=== PATIENT | male | born 1960 | race Caucasian/White ===

== ENCOUNTER 2016-09-29 17:41 | Emergency (ER) | payer OTHER ==
[~2016-09-29] VITALS: Ht 185.4 cm; Wt 120.0 kg
[~2016-09-29 17:41] MED LIST: ALBUAER3 INH; ALLO300T2 PO; ALPR0.5T3 PO; AMLO10TA2 PO; APIX5TAB PO; ATOR1TAB18 PO; BACL10TA PO; CARV25TA PO; CLON1TAB PO; COLC1TAB7 PO; DULE200A INH; ENAL20TA PO; FENT25DI T-DERMAL; GABA100C4 PO; HYDR-3535 PO; MONT10TA4 PO; PANT40TA3 PO; VENL75TA PO
[2016-09-29 17:45] VITALS: BP 137/87; PULSE 79; RESP 16; TEMP 98; O2SAT 96
[2016-09-29] MEDS ORDERED: ACETAMINOPHEN 325 MG TAB PO ONE (18:00)
--- NOTE | 2016-09-29 18:22 | PD ---
HPI Chief Complaint: Fall Time Seen by Provider: 17:51 Travel History International Travel<30 days: No Contact w/Intl Traveler<30days: No Traveled to known affect area: No History of Present Illness HPI 56-year-old male [place] the [place]. He was seated in a chair on the beach and his bumped into him causing him to fall backwards landing on his occipital scalp. 4 about 30 minutes or so the patient had disorientation or memory loss. His states that the whole time he has been behaving normally. He complains of minimal occipital cephalgia and frontal cephalgia in the ER. He has no numbness tingling weakness. states he normally suffers with memory impairment typically inability to recall the dates of the month/year. He has a history of CVA and DVT with PE. He takes Eloquis. The reports a history of transient global amnesia. He denies drugs alcohol. The patient's states he was awake and alert throughout the entirety of the event and his behavior was normal as well. PFSH Past Medical History Hx Anticoagulant Therapy: Yes (ELIQUIS) Arthritis: Yes (SHOULDER AND BACK) Asthma: Yes Blood Disorders: No Anxiety: Yes Depression: No Heart Rhythm Problems: No Cancer: No Cardiovascular Problems: Yes High Cholesterol: Yes Chest Pain: Yes Congestive Heart Failure: Yes COPD: Yes Cerebrovascular Accident: Yes Diabetes: No Deep Vein Thrombosis: Yes Endocrine: No GERD: Yes Gout: Yes Genitourinary: No Hiatal Hernia: No Hypertension: Yes Immune Disorder: No Musculoskeletal: Yes Neurologic: Yes Psychiatric: Yes Reproductive: No Respiratory: Yes (COPD) Migraines: Yes Seizures: No Sleep Apnea: No Ulcer: Yes Tetanus Vaccination: < 5 Years Past Surgical History Abdominal Surgery: No AICD: No Arteriovenous Shunt: No Cardiac Surgery: Yes Coronary Stent: Yes Ear Surgery: No Endocrine Surgery: No Eye Surgery: No Genitourinary Surgery: No Gynecologic Surgery: No Insulin Pump: No Joint Replacement: No Oral Surgery: No Pacemaker: No Thoracic Surgery: No Other Surgery: Yes (RIGHT INDEX TENDON) Social History Alcohol Use: No Tobacco Use: No Substance Use: No Allergies-Medications (Allergen,Severity, Reaction): Coded Allergies: No Known Allergies (Unverified , 08/28/16) Reported Meds & Prescriptions Reported Meds & Active Scripts Active Phenergan (Promethazine HCl) 25 Mg Tab 25 Mg PO Q6H PRN Reported Lortab (Hydrocodone-Acetaminophen) 10-325 Mg Tab 1 Tab PO Q6H PRN Colcrys (Colchicine) 0.6 Mg Tab 0.6 Mg PO DAILY Fentanyl Patch 72 HR (Fentanyl) 25 Mcg/Hr Patch 25 Mcg T-DERMAL Q72H Proair Hfa 8.5 GM Inh (Albuterol Sulfate) 90 Mcg/Act Aer 2 Puff INH Q6H PRN 108 mcg/actuation Dulera 120 Act Inh (Mometasone-Formoterol 120 Act Inh) 200-5 Mcg/Act Inh 2 Puff INH BID Baclofen 10 Mg Tab 10 Mg PO TID Alprazolam 0.5 Mg Tab 0.5 Mg PO Q6H PRN Gabapentin 100 Mg Cap 200 Mg PO BID Pantoprazole (Pantoprazole Sodium) 40 Mg Tab 40 Mg PO DAILY Clonazepam 1 Mg Tab 1 Mg PO DAILY Allopurinol 300 Mg Tab 300 Mg PO DAILY Effexor (Venlafaxine HCl) 75 Mg Tab 75 Mg PO DAILY Atorvastatin (Atorvastatin Calcium) 80 Mg Tab 80 Mg PO HS Montelukast (Montelukast Sodium) 10 Mg Tab 10 Mg PO HS Amlodipine (Amlodipine Besylate) 10 Mg Tab 10 Mg PO DAILY Enalapril (Enalapril Maleate) 20 Mg Tab 20 Mg PO BID Carvedilol 25 Mg Tab 25 Mg PO BID Eliquis (Apixaban) 5 Mg Tab 5 Mg PO BID Review of Systems Except as stated in HPI: all other systems reviewed are Neg Physical Exam Narrative GENERAL: 56 yo M, WNWD, NAD SKIN: Focused skin assessment warm/dry. HEAD: Atraumatic. Normocephalic. EYES: Pupils equal and round. No scleral icterus. No injection or drainage. ENT: No nasal bleeding or discharge. Mucous membranes pink and moist. NECK: Trachea midline. No JVD. CARDIOVASCULAR: Regular rate and rhythm. No murmur appreciated. RESPIRATORY: No accessory muscle use. Clear to auscultation. Breath sounds equal bilaterally. GASTROINTESTINAL: Abdomen soft, non-tender, nondistended. Hepatic and splenic margins not palpable. MUSCULOSKELETAL: No obvious deformities. No clubbing. No cyanosis. No edema. NEUROLOGICAL: Awake and alert 2 which was normal according to the . The motor function is normal 4 extremities and symmetric. There is no cranial nerve deficit. The patient can perform serial 3's subtractions from 10 to 1. He knows who the present and is any knows that there are for quarters and dollar. His speech is normal. PSYCHIATRIC: Appropriate mood and affect; insight and judgment normal. Data Data Last Documented VS Vital Signs Date Time Temp Pulse Resp B/P Pulse Ox O2 Delivery O2 Flow Rate FiO2 09/29/16 19:25 73 12 134/78 98 Room Air 09/29/16 17:45 98.0 Vital signs reviewed Orders Ct Brain W/O Iv Contrast(Rout) (09/29/16 17:58) Acetaminophen (Tylenol) (09/29/16 18:00) Promethazine (Phenergan) (09/29/16 19:30) MDM Medical Decision Making Medical Screen Exam Complete: Yes Emergency Medical Condition: Yes Medical Record Reviewed: Yes Differential Diagnosis CHI, intracranial hemorrhage, transient global amnesia, seizure, CVA, TIA Narrative Course Last [address] 09/29/16 8158 Signed Impressions: Service Date/Time: Thursday, September 29, 2016 18:35 - CONCLUSION: No bleed or other acute intracranial abnormality. Old left basal ganglia infarct. Scott Brooks MD Close head injury precautions discussed. The patient is resting comfortably and feels better, is alert and in no distress. The patients results and examination findings were discussed. The repeat examination is unremarkable and benign. The history, exam, diagnostic testing, and current condition do not suggest any significant pathology to warrant further testing, continued ED treatment, admission, or surgical evaluation at this point. The vital signs have been stable. The patient does not have uncontrollable pain, intractable vomiting, or other significant symptoms. The patient's condition is stable and appropriate for discharge. The patient will pursue further outpatient evaluation with a primary care physician or other designated or consulting physician as indicated in the discharge instructions. The patient expressed understanding and was agreeable with this plan. Diagnosis Primary Impression: Head injury Qualified Code: S09.90XA - Head injury, initial encounter Additional Impression: Head injury with loss of consciousness Referrals: Scott Polanco MD 2 days Additional Instructions: You have a choice when it comes to health care, and we are glad that you chose [facility]. Hopefully, we have met your expectations on today's visit. You are welcome to return to [facility] at any time, as we are committed to meeting the health care needs of our community. Med/Other Pt SpecificInfo: No Change to Meds Scripts Promethazine (Phenergan)25 Mg Tab25 Mg PO Q6H PRN (HEADACHE) #10 TAB Ref 0 Prov:Igor Tran MD 09/29/16 Disposition: 01 DISCHARGE HOME Condition: Stable Igor Tran MD September 29, 2016 18:21
--- NOTE | 2016-09-29 19:15 | RADRPT ---
EXAM DATE/TIME: 09/29/2016 18:35 [facility] COMPARISON: No previous studies available for comparison. INDICATIONS : Trauma; fall. Possible syncopal episode. RADIATION DOSE: 56.35 CTDIvol (mGy) MEDICAL HISTORY : None SURGICAL HISTORY : None. ENCOUNTER: Initial ACUITY: 1 day PAIN SCALE: 0/10 LOCATION: cranial TECHNIQUE: Multiple contiguous axial images were obtained of the head. Using automated exposure control and adj ustment of the mA and/or kV according to patient size, radiation dose was kept as low as reasonably a chievable to obtain optimal diagnostic quality images. FINDINGS: CEREBRUM: The ventricles are normal for age. No evidence of midline shift, mass lesion, hemorrhage or acute in farction. No extra-axial fluid collections are seen. Old left basal ganglia lacunar infarct again no fabiola. POSTERIOR FOSSA: The cerebellum and brainstem are intact. The 4th ventricle is midline. The cerebellopontine angle i s unremarkable. EXTRACRANIAL: The visualized portion of the orbits is intact. SKULL: The calvaria is intact. No evidence of skull fracture. CONCLUSION: No bleed or other acute intracranial abnormality. Old left basal ganglia infarct. Scott Brooks MD on September 29, 2016 at 19:13 Board Certified Radiologist. This report was verified electronically.
[2016-09-29 19:25] VITALS: BP 134/78; PULSE 73; RESP 12; O2SAT 98
[2016-09-29] MEDS ORDERED: PROM25TA5 PO (19:26)
[2016-09-29] MEDS ORDERED: PROMETHAZINE HCL 25 MG TAB PO ONE (19:30)
== END 2016-09-29 19:34 | disposition home or self-care (01) ==
LOC: NEPD 17:41
DX: S06.9X9A Unspecified intracranial injury with loss of consciousness of unspecified duration, initial encounter (principal); W07.XXXA Fall from chair, initial encounter; Y92.832 Beach as the place of occurrence of the external cause
CPT/HCPCS: 70450; 99283; Q0169